=== PATIENT | male | born 1955 | race Caucasian/White ===

== ENCOUNTER 2022-04-29 15:40 | Observation (INO) | payer OTHER ==
[~2022-04-29] VITALS: Ht 167.6 cm; Wt 81.6 kg
[2022-04-29 15:44] VITALS: BP 84/50
[2022-04-29] MEDS ORDERED: NACL 0.9% 1,000 ML IV ONE ×2 (16:00→17:05)
--- NOTE | 2022-04-29 16:00 | NUR ---
MD MONROY AT BEDSIDE FOR EVALUATION
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
--- NOTE | 2022-04-29 16:40 | NUR ---
verbal order received from MD MONROY . 1L NS BOLUS. orders comfirmed and carried out
--- NOTE | 2022-04-29 16:50 | NUR ---
us left at bedside for ermd
--- NOTE | 2022-04-29 17:04 | NUR ---
MADE AWARE OF UPDATED VITALS
[2022-04-29 17:05] LABS: BASOPHILS % (AUTO) 0.3 % (0.0-2.0); EOSINOPHILS % (AUTO) 0.5 % (0.0-4.0); HEMATOCRIT 40.5 % (36-52); HEMOGLOBIN 13.7 g/dL (12.0-18.0); LYMPHOCYTES # (AUTO) 0.9 K/uL (2.0-11.5); LYMPHOCYTES % (AUTO) 9.6 % (20.5-51.1); MEAN CORPUSCULAR HEMOGLOBIN 33 pg (27-31); MEAN CORPUSCULAR HGB CONC 34 g/dL (33-37); MEAN CORPUSCULAR VOLUME 95.9 fL (80-94); MONOCYTES # (AUTO) 1.1 K/uL (0.8-1.0); MONOCYTES % (AUTO) 10.7 % (1.7-9.3); NEUTROPHILS # (AUTO) 7.7 K/uL (1.8-7.7); NEUTROPHILS % (AUTO) 78.9 % (42.2-75.2); PLATELET COUNT (AUTO) 144 K/uL (140-450); RED BLOOD CELL COUNT(AUTO) 4.22 MIL/uL (4.20-6.10); RED CELL DISTRIBUTION WIDTH 13.3 % (11.6-13.7); WHITE BLOOD COUNT (AUTO) 9.8 K/uL (4.8-10.8)
[2022-04-29] MEDS ORDERED: CALCIUM GLUCONATE 10% 1,000 MG in NACL 0.9% 50 ML IV ONE (17:10)
[2022-04-29] MEDS ORDERED: CALCIUM GLUC 1 GM/50 mL NS BAG 50 ML IV ONE (17:40)
[2022-04-29 17:56] LABS: ANION GAP 11.8 (8-16); CARBON DIOXIDE 23.9 mmol/L (21-32); CREATININE 1.7 mg/dL (0.6-1.3); POTASSIUM 3.7 mmol/L (3.5-5.1)
[2022-04-29 18:13] LABS: ALBUMIN 2.5 g/dL (3.4-5.0); TOTAL BILIRUBIN 0.5 mg/dL (0.0-1.0)
--- NOTE | 2022-04-29 18:15 | NUR ---
pt unable to recall home meds for med req. pending call back from family.
[2022-04-29] MEDS ORDERED: ASPIRIN 325 MG TAB ONE (18:27)
[2022-04-29] MEDS ORDERED: ASPIRIN 325 MG TAB PO ONE (18:30)
--- NOTE | 2022-04-29 18:44 | NUR ---
pt swabbed for covid(austyn). walked to lab.
--- NOTE | 2022-04-29 18:45 | NUR ---
request for DVM REEXAMINATION for filled out and in chart.
[2022-04-29 18:53] LABS: FREE T4 (FREE THYROXINE) 0.95 ng/dL (0.76-1.46); THYROID STIMULATING HORMONE 1.64 uIU/mL (0.34-3.74)
--- NOTE | 2022-04-29 19:07 | NUR ---
PT TAKEN TO CT VIA WHEELCHAIR
--- NOTE | 2022-04-29 19:20 | NUR ---
REPORT GIVEN TO SUSANNE FLORES. TRANSFER OF CARE AT THIS TIME
--- NOTE | 2022-04-29 19:35 | NUR ---
ambulatory to restroom
--- NOTE | 2022-04-29 19:40 | NUR ---
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
[2022-04-29] MEDS ORDERED: HYDROcodone/APAP 5/325 MG 1 TAB TAB PO PRN (20:30)
[2022-04-29] MEDS ORDERED: ONDANSETRON 4 MG/2 ML VIAL IVP PRN (20:30)
[2022-04-29] MEDS ORDERED: MORPHINE SULFATE 4 MG/ML SYR IVP PRN (20:30)
[2022-04-29] MEDS ORDERED: ACETAMINOPHEN 325 MG TAB PO PRN (20:30)
[2022-04-29] MEDS ORDERED: NACL 0.9% 1,000 ML IV SCH (20:30)
--- NOTE | 2022-04-29 20:45 | NUR ---
lab at bedside
--- NOTE | 2022-04-29 21:00 | NUR ---
pt tolerated food well. on conveyor monitor and resting
--- NOTE | 2022-04-30 00:31 | NUR ---
pt resting on playground monitor
--- NOTE | 2022-04-30 01:00 | NUR ---
pt in room and on cardiac cath lab technologist awaiting admission.
--- NOTE | 2022-04-30 04:34 | NUR ---
pt denies any pain at the moment, resting in room awaiting admission
--- NOTE | 2022-04-30 05:22 | NUR ---
unable to obtain pt's medication to [facility] due to pt stating " I do not know any of my medications."
--- NOTE | 2022-04-30 06:36 | NUR ---
lab at bedside
[2022-04-30 07:09] LABS: BASOPHILS % (AUTO) 0.4 % (0.0-2.0); EOSINOPHILS # (AUTO) 0.1 K/uL (0-0.4); EOSINOPHILS % (AUTO) 1.4 % (0.0-4.0); HEMATOCRIT 43.4 % (36-52); HEMOGLOBIN 14.8 g/dL (12.0-18.0); LYMPHOCYTES # (AUTO) 1.1 K/uL (2.0-11.5); LYMPHOCYTES % (AUTO) 14.8 % (20.5-51.1); MEAN CORPUSCULAR HEMOGLOBIN 33 pg (27-31); MEAN CORPUSCULAR HGB CONC 34 g/dL (33-37); MEAN CORPUSCULAR VOLUME 95.5 fL (80-94); MONOCYTES # (AUTO) 0.7 K/uL (0.8-1.0); MONOCYTES % (AUTO) 10.1 % (1.7-9.3); NEUTROPHILS # (AUTO) 5.3 K/uL (1.8-7.7); NEUTROPHILS % (AUTO) 73.3 % (42.2-75.2); PLATELET COUNT (AUTO) 158 K/uL (140-450); RED BLOOD CELL COUNT(AUTO) 4.54 MIL/uL (4.20-6.10); RED CELL DISTRIBUTION WIDTH 13.8 % (11.6-13.7); WHITE BLOOD COUNT (AUTO) 7.2 K/uL (4.8-10.8)
--- NOTE | 2022-04-30 07:23 | NUR ---
Pt report given to Mariya. Transfer of care at this time.
--- NOTE | 2022-04-30 07:27 | NUR ---
Report recieved from SANDRA Duffy for transfer of care.
[2022-04-30 07:30] LABS: ANION GAP 11.5 (8-16); CARBON DIOXIDE 24.5 mmol/L (21-32); CREATININE 1.2 mg/dL (0.6-1.3)
--- NOTE | 2022-04-30 07:56 | NUR ---
Patient will be admitted to care of Dr. Souza. Admited to [place]. Will go to room 118. Belongings list completed. Report to JOHNNY Garcia.
--- NOTE | 2022-04-30 08:13 | NUR ---
The patient's care was reviewed and supervised by ED Agency Nurse 9, RN, RN.
[2022-04-30 08:40] VITALS: BP 128/61
[2022-04-30 11:23] VITALS: BP 127/74
--- NOTE | 2022-05-02 09:32 | NUR ---
LATE ENTRY -- CONFIRMED WITH NURSE NS INFUSION AT 80ML/HR COMPLETED AT 1015 04/30/22
== END 2022-04-30 11:45 | disposition home or self-care (01) ==
LOC: MED 15:40 → MTU 20:30 → UNDODISOB 04-30 11:45
PROVIDERS: ADMIT Student in an Organized Health Care Education/Training Program; ATTEND Student in an Organized Health Care Education/Training Program
DX: U07.1 COVID-19 (principal); I95.2 Hypotension due to drugs; E86.1 Hypovolemia; I10 Essential (primary) hypertension; I25.10 Atherosclerotic heart disease of native coronary artery without angina pectoris; E78.5 Hyperlipidemia, unspecified; E78.00 Pure hypercholesterolemia, unspecified; I21.4 Non-ST elevation (NSTEMI) myocardial infarction; N28.9 Disorder of kidney and ureter, unspecified; Z79.899 Other long term (current) drug therapy
CPT/HCPCS: 36415; 71045; 71275; 80048; 80053; 83880; 84439; 84443; 84484; 85025; 87426; 93005; 96361; 96365; 96372; 99291; G0378; J0610; J1644; Q0092; Q9967